=== PATIENT | female | born 1975 | race African-American/Black ===

== ENCOUNTER 2018-09-19 18:13 | Emergency (ER) | payer MEDICAID ==
[~2018-09-19] VITALS: Ht 157.5 cm; Wt 77.0 kg
[2018-09-19] MEDS ORDERED: PENICILLIN G BENZATHINE 1,200,000 UNITS/2ML SYR IM ONE (19:45)
[2018-09-19 20:12] VITALS: BP 129/75
== END 2018-09-19 20:13 | disposition home or self-care (01) ==
LOC: ER 18:13
DX: J02.9 Acute pharyngitis, unspecified (principal); Z90.49 Acquired absence of other specified parts of digestive tract
CPT/HCPCS: 87070; 87430; 96372; 99283; J0561

== ENCOUNTER 2019-08-17 14:54 | Emergency (ER) | payer MEDICAID ==
[~2019-08-17] VITALS: Ht 157.5 cm; Wt 78.0 kg
[2019-08-17] MEDS ORDERED: ALBUTEROL (0.083%) 2.5MG/3ML NEB HHN STA (15:40)
[2019-08-17] MEDS ORDERED: PREDNISONE 20MG TABLET PO STA (15:40)
[2019-08-17] MEDS ORDERED: IPRATROPIUM BROMIDE (0.02%) 0.5MG/2.5ML NEB HHN STA (15:40)
[2019-08-17] MEDS ORDERED: PREDNISONE 20MG TABLET PO ONE (16:00)
[2019-08-17 17:52] VITALS: BP 127/88
== END 2019-08-17 17:54 | disposition home or self-care (01) ==
LOC: ER 15:00
DX: J20.9 Acute bronchitis, unspecified (principal); F17.210 Nicotine dependence, cigarettes, uncomplicated; Z90.49 Acquired absence of other specified parts of digestive tract; Z71.6 Tobacco abuse counseling
CPT/HCPCS: 71045; 94640; 99283; J7512; J7610; Z7610

== ENCOUNTER 2019-09-08 07:50 | Emergency (ER) | payer MEDICAID ==
[~2019-09-08] VITALS: Ht 157.5 cm; Wt 79.0 kg
[2019-09-08 08:30] VITALS: BP 144/94
[2019-09-08] MEDS ORDERED: IPRATROPIUM BROMIDE (0.02%) 0.5MG/2.5ML NEB HHN STA (08:50)
[2019-09-08] MEDS ORDERED: PREDNISONE 20MG TABLET PO STA (08:50)
[2019-09-08] MEDS ORDERED: ALBUTEROL (0.083%) 2.5MG/3ML NEB HHN STA (08:50)
== END 2019-09-08 09:52 | disposition home or self-care (01) ==
LOC: ER 07:50
DX: J45.901 Unspecified asthma with (acute) exacerbation (principal); Z98.890 Other specified postprocedural states; Z90.49 Acquired absence of other specified parts of digestive tract
CPT/HCPCS: 81025; 94640; 99283; J7512; Z7610

== ENCOUNTER 2020-01-07 07:37 | Emergency (ER) | payer MEDICAID ==
[~2020-01-07] VITALS: Ht 157.5 cm; Wt 80.0 kg
[2020-01-07 07:57] VITALS: BP 148/90
[2020-01-07] MEDS ORDERED: IPRATROPIUM/ALBUTEROL 0.5-3(2.5)MG/3ML NEB HHN ONE (08:15)
[2020-01-07] MEDS ORDERED: DEXAMETHASONE 4MG TABLET PO ONE (08:15)
== END 2020-01-07 09:05 | disposition home or self-care (01) ==
LOC: ER 07:37
DX: J45.901 Unspecified asthma with (acute) exacerbation (principal); Z98.890 Other specified postprocedural states; Z90.49 Acquired absence of other specified parts of digestive tract
CPT/HCPCS: 94640; 99283; J8540; Z7610

== ENCOUNTER 2020-03-06 16:54 | Emergency (ER) | payer MEDICAID ==
[~2020-03-06] VITALS: Ht 154.9 cm; Wt 72.5 kg
[2020-03-06 17:12] VITALS: BP 142/73
== END 2020-03-06 17:46 | disposition home or self-care (01) ==
LOC: ER 16:54
DX: J45.901 Unspecified asthma with (acute) exacerbation (principal); R07.89 Other chest pain; Z90.49 Acquired absence of other specified parts of digestive tract; Z98.890 Other specified postprocedural states; Z98.51 Tubal ligation status
CPT/HCPCS: 99282; 99283

== ENCOUNTER 2020-03-31 12:47 | Emergency (ER) | payer MEDICAID ==
[~2020-03-31] VITALS: Ht 154.9 cm; Wt 75.0 kg
[2020-03-31] MEDS ORDERED: PREDNISONE 20MG TABLET PO STA (14:17)
[2020-03-31] MEDS ORDERED: IPRATROPIUM BROMIDE (0.02%) 0.5MG/2.5ML NEB HHN STA (14:17)
[2020-03-31] MEDS ORDERED: ALBUTEROL (0.083%) 2.5MG/3ML NEB HHN STA (14:17)
[2020-03-31 16:08] VITALS: BP 142/84
== END 2020-03-31 16:10 | disposition home or self-care (01) ==
LOC: ER 12:47
DX: J45.901 Unspecified asthma with (acute) exacerbation (principal); Z76.0 Encounter for issue of repeat prescription; Z90.49 Acquired absence of other specified parts of digestive tract; Z98.51 Tubal ligation status; Z98.890 Other specified postprocedural states
CPT/HCPCS: 71045; 94644; 99285; J7512; Z7610

== ENCOUNTER 2024-03-05 15:38 | Emergency (ER) | payer MEDICAID ==
[~2024-03-05] VITALS: Ht 157.5 cm; Wt 118.0 kg
[2024-03-05 15:45] VITALS: O2SAT 98
[2024-03-05] MEDS ORDERED: IBUPROFEN 400MG TABLET PO ONE (20:30)
[2024-03-05] MEDS ORDERED: IBUP-2028 MT (21:33)
[2024-03-05 22:06] VITALS: BP 135/78; PULSE 63; RESP 16; TEMP 36.83628; O2SAT 98
[2024-03-05] MEDS: IBUPROFEN 400MG TABLET PO NR (22:16)
== END 2024-03-05 23:14 | disposition home or self-care (01) ==
LOC: ER 15:38
DX: M25.562 Pain in left knee (principal); M25.462 Effusion, left knee; M25.511 Pain in right shoulder; J45.909 Unspecified asthma, uncomplicated; Z98.890 Other specified postprocedural states; Z98.51 Tubal ligation status; Z90.49 Acquired absence of other specified parts of digestive tract
CPT/HCPCS: 73030; 73560; 99284